=== PATIENT | female | born 1955 | race Caucasian/White ===

== ENCOUNTER 2020-02-02 07:07 | Inpatient (IN) | payer BC ==
[~2020-02-02 07:07] MED LIST: Lactated Ringers 1000 ml BAG 1,000 ML IV SCH
[2020-02-02] MEDS ORDERED: ceFAZolin 2 GM PREMIX 2 GM/50 ML BAG ONE (07:28)
[2020-02-02] MEDS ORDERED: Bupivacaine 0.5% SDV PF 30ML VIAL ONE (07:32)
[2020-02-02] MEDS ORDERED: Propofol 10 MG/ML 20 ML BTL ONE (08:31)
[2020-02-02] MEDS ORDERED: Ketamine HCL 50 mg/ml 10 ml VIAL (500 MG) ONE (08:32)
[2020-02-02] MEDS ORDERED: Lidocaine 2% PF 5 ML VIAL ONE ×2 (08:32→11:46)
[2020-02-02] MEDS ORDERED: Midazolam 2 mg/2 ml VIAL 1 mg/ml 2 ml VIAL (2 mg) ONE (08:34)
[2020-02-02] MEDS ORDERED: ROPIVACAINE 5 MG/ML 30 ML BTL (0.5%) ONE (08:34)
[2020-02-02] MEDS ORDERED: Lidocaine 1% MPF 5 ML VIAL ONE (08:42)
[2020-02-02] MEDS ORDERED: fentaNYL 100 mcg/2 ml 50 MCG/ML VIAL ONE (09:32)
[2020-02-02] MEDS ORDERED: Succinylcholine 200 mg VIAL 20 mg/ml 10 ml VIAL (200 mg) ONE (09:32)
[2020-02-02] MEDS ORDERED: Rocuronium 50 mg VIAL 10 mg/ml 5 ml VIAL (50 mg) ONE (09:46)
[2020-02-02] MEDS ORDERED: Dexamethasone IV 4 MG/ML VIAL 1 ml VIAL ONE (10:16)
[2020-02-02] MEDS ORDERED: HYDROmorphone 1 MG/1 ML SYRINGE IV PRN (10:38)
[2020-02-02] MEDS ORDERED: Naloxone 0.4 mg VIAL 0.4 mg/ml 1 ml VIAL IV PRN (10:38)
[2020-02-02] MEDS ORDERED: DiMENhydriNATE IV 50 mg/ml 1 ml VIAL IV PUSH PRN (10:38)
[2020-02-02] MEDS ORDERED: Acetaminophen IV 1 GM/100ML 100 ML ONE (10:39)
[2020-02-02] MEDS ORDERED: Phenylephrine 40 mcg/mL 10mL (400mcg) SYRINGE ONE (10:40)
[2020-02-02] MEDS ORDERED: Metoclopramide 5 MG/ML VIAL (10 mg) ONE (10:43)
[2020-02-02] MEDS ORDERED: Ondansetron 4 mg VIAL 2 MG/ML 2 ml VIAL ONE (10:43)
[2020-02-02] MEDS ORDERED: HYDROmorphone 1 MG/1 ML SYRINGE ONE (11:12)
[2020-02-02] MEDS ORDERED: Glycopyrrolate IV 0.2 MG/ML 1 ML VIAL ONE (11:18)
[2020-02-02] MEDS ORDERED: Neostigmine Methylsulfate 1 MG/ML 10 ML VIAL (1 mg/ml) ONE (11:19)
[2020-02-02] MEDS ORDERED: Lactulose 30 ml UDC PO PRN (12:04)
[2020-02-02] MEDS ORDERED: oxyCODONE/Acetamin 5/325 mg TAB PO PRN (12:04)
[2020-02-02] MEDS ORDERED: Ondansetron ODT 4 mg TAB 4 MG TAB PO PRN (12:04)
[2020-02-02] MEDS ORDERED: Ondansetron 4 mg VIAL 2 MG/ML 2 ml VIAL IV PRN (12:04)
[2020-02-02] MEDS ORDERED: diPHENhydraMINE IV 50 MG/ML 1 ml VIAL (BENADRYL) IV PRN (12:04)
[2020-02-02] MEDS ORDERED: Magnesium Hydroxide LIQ 30 ML UDC PO PRN (12:04)
[2020-02-02] MEDS ORDERED: diPHENhydraMINE 25 mg TAB PO PRN (12:04)
[2020-02-02] MEDS ORDERED: oxyCODONE/Acetamin 5/325 mg TAB ONE (12:12)
[2020-02-02] MEDS ORDERED: Albuterol/Ipratropium NEB.SOL (2.5/0.5 MG) 3 ML NEB.SOLN INH PRN (12:54)
[2020-02-02] MEDS: Lactated Ringers 1000 ml BAG 1,000 ML IV SCH ×2 (13:29→23:47)
[2020-02-02] MEDS: ceFAZolin VIAL 1 GM in NS 0.9% 50 ML 50 ML IVPB SCH (17:34)
[2020-02-02] MEDS: Magnesium Hydroxide LIQ 30 ML UDC PO SCH (21:49)
[2020-02-02] MEDS: oxyCODONE/Acetamin 5/325 mg TAB PO PRN (21:49)
[2020-02-03] MEDS ORDERED: Polyethylene Glycol 3350 17 GM PACKET PO PRN (00:01)
[2020-02-03] MEDS: ceFAZolin VIAL 1 GM in NS 0.9% 50 ML 50 ML IVPB SCH ×2 (01:46→10:29)
[2020-02-03] MEDS: oxyCODONE/Acetamin 5/325 mg TAB PO PRN ×2 (03:39→13:12)
[2020-02-03 05:54] LABS: Hematocrit 35 % (35-47); Hemoglobin 11.9 g/dL (12.0-16.0); Mean Platelet Volume 7.6 fL (7.4-10.4); Platelet Count 227 10^3/uL (150-450)
[2020-02-03 06:20] LABS: BUN/Creatinine Ratio 16.7 (8-20); Calcium 8.5 mg/dL (8.6-10.3); EGFR African American 90.6 (>60); EGFR Non-African American 74.8 (>60); Potassium 4.2 mmol/L (3.5-5.0)
[2020-02-03] MEDS: Magnesium Hydroxide LIQ 30 ML UDC PO SCH (09:04)
[2020-02-03 11:41] VITALS: BP 116/63
== END 2020-02-03 13:55 | disposition home or self-care (01) ==
LOC: SSU 07:07 → OR 07:07 → EDSTATUS 07:30
PROVIDERS: ADMIT Orthopaedic Surgery Adult Reconstructive Orthopaedic Surgery; ATTEND Orthopaedic Surgery Adult Reconstructive Orthopaedic Surgery